=== PATIENT | female | born 2000 | race Caucasian/White ===

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

== ENCOUNTER → 2019-03-09 | Outpatient (CLI) | payer BC ==
--- NOTE | 2019-03-09 15:39 | RAD ---
EXAM DESCRIPTION: Lumbar Puncture: RF CLINICAL HISTORY: HEADACHE. Elevated CSF pressure. Possible brain neoplasm. Previous Chiari I malformation surgery. COMPARISON: None. TECHNIQUE: Informed written consent was obtained from the patient. Timeout was performed with the patient for identification purposes. Patient was positioned prone on the fluoroscopy table. Residential [place] image to visualize the prone lumbar spine prior to needle insertion. Routine sterile prep and drape was performed. Iodine swabs were utilized. 1% lidocaine mixed without bicarbonate was used for local/skin anesthetic. Using fluoroscopy for guidance, a 22 gauge spinal needle was advanced into the L2-3 subarachnoid space of the lumbar spine. Opening pressure was 10.5 mmHg. Closing pressure was 5.8 mmHg. Approximately 3 cc of clear fluid was removed and sent for routine laboratory. Extremely slow drainage. No immediate complication was evident. The patient tolerated the procedure well. Fluoroscopy time: 2.1 minutes.. Single posterior image with needle inserted was recorded. Dose: 73.36 mGy Patient observation for one hour with no complications. Discharged home with family member and home instructions. IMPRESSION: Successful, fluoroscopic-guided, lumbar puncture at L2-L3 level. Pending laboratory results CSF. Electronically signed by: Yong Arana MD 03/09/2019 3:38 PM EMERGENCY DEPARTMENT AIDE
== END | disposition home or self-care (01) ==
LOC: RAD 10:00
PROVIDERS: ATTEND Nurse Practitioner Family
DX: R51 Headache (principal)

== ENCOUNTER 2019-03-10 20:07 | Emergency (ER) | payer BC ==
--- NOTE | 2019-03-10 20:47 | ED.PDOC ---
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 Associated nausea and back pain around the site of the LP. No relief with OTC medications. Denies f/c, change in vision, neck pain, neck stiffness, CP, SOB, abd pain, v/d, urinary sx. Allergies/Adverse Reactions: Allergies NO KNOWN ALLERGY Allergy (Unverified 07/31/18 08:33) Home Medications: Ambulatory Orders Advair 100/50 Diskus 0 mg INH ACHS 06/05/14 Albuterol Sulfate [Ventolin Hfa] 07/31/18 Tramadol HCl 50 mg PO Q8HR PRN #20 tab 07/31/18 Ywghbbnkzlbzc-Takb-Umzyrfkgnz [Fioricet] 1 ea PO Q8H PRN #12 tab 03/10/19 Review of Systems - Review of Systems Constitutional: Denies: chills, fever EENTM: Denies: blurred vision, double vision Respiratory: Denies: cough, short of breath Cardiology: Denies: chest pain, palpitations Gastrointestinal/Abdominal: States: nausea. Denies: abdominal pain, vomiting Genitourinary: Denies: dysuria, frequency, hematuria Musculoskeletal: States: back pain. Denies: muscle stiffness, neck pain Skin: Denies: change in color, rash Neurological: States: headache. Denies: numbness, weakness Hematologic/Lymphatic: Denies: easy bleeding, easy bruising Past Medical History (General) - Patient Medical History Hx Seizures: No Hx Stroke: No Hx Dementia: No Hx Asthma: Yes Hx of COPD: No Hx Cardiac Disorders: No Hx Congestive Heart Failure: No Hx Pacemaker: No Hx Hypertension: No Hx Thyroid Disease: No Hx Diabetes: No Hx Gastroesophageal Reflux: No Hx Renal Disease: No Hx Cancer: No Hx of HIV: No Hx Hepatitis C: No Hx MRSA: No - Vaccination History Hx Tetanus, Diphtheria Vaccination: Yes Hx Influenza Vaccination: Yes Hx Pneumococcal Vaccination: No - Social History Hx Tobacco Use: No Hx Alcohol Use: No Hx Substance Use: No Hx Substance Use Treatment: No Hx Depression: No - Female History Patient : No Family Medical History - Family History Mother Family History: No Known Living Status: Still Living Physical Exam - Physical Exam General Appearance: Alert, No apparent distress, Well Developed, Well Nourished, Other - laying in bed, appears to be uncomfortable Eyes, Ears, Nose, Throat Exam: PERRL/EOMI, normal ENT inspection Neck: non-tender, full range of motion, supple, normal inspection Cardiovascular/Chest: normal peripheral pulses, regular rate, rhythm, no edema, no gallop, no JVD, no murmur Respiratory: chest non-tender, lungs clear, normal breath sounds, no respiratory distress, no accessory muscle use Gastrointestinal/Abdominal: normal bowel sounds, non tender, soft, no organomegaly, no pulsatile mass Back Exam: normal inspection, no CVA tenderness, other - Mild TTP around LP site. No signs of infection, no bleeding or discharge. 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 Headache resolved, appears comfortable, neuro intact. I explained that emergent conditions may arise and to return to the ER for new, worsening, or any persistent conditions including but not limited to intractable vomiting, worsening headache, weakness, numbness, fever. I've explained the importance of f/u for recheck. All questions and concerns addressed at this time. Pt understands and agrees with plan. Pt well appearing, NAD, is stable for discharge. Yahaira Simon MD Emergency Medicine Physician Billing Number [id number] - Results/Orders Results/Orders: Laboratory Results - last 24 hr 03/10/19 03/10/19 03/10/19 20:55 20:55 20:55 WBC 8.1 RBC 4.46 Hgb 13.6 Hct 40.5 MCV 90.8 MCH 30.5 MCHC 33.6 RDW 12.5 Plt Count 270 MPV 7.6 Absolute Neuts (auto) 4.90 Absolute Lymphs (auto) 2.40 Absolute Monos (auto) 0.50 Absolute Eos (auto) 0.30 Absolute Basos (auto) 0.10 Neutrophils % 59.9 Lymphocytes % 29.0 Monocytes % 6.0 Eosinophils % 4.3 Basophils % 0.8 PT 10.4 INR 1.04 PTT (SP) 26.3 Sodium 140 Potassium 3.7 Chloride 108 Carbon Dioxide 20 L Anion Gap 15.7 BUN 8 Creatinine 0.80 BUN/Creatinine Ratio 10.0 Random Glucose 97 Serum Osmolality 277.6 Calcium 9.3 Total Bilirubin 0.5 AST 16 ALT 18 Alkaline Phosphatase 53 L Serum Total Protein 7.4 Albumin 4.5 Globulin 2.9 Albumin/Globulin Ratio 1.6 Urine Color Urine Appearance Urine pH Ur Specific [place] Urine Protein Urine Glucose (UA) Urine Ketones Urine Blood Urine Nitrite Urine Bilirubin Urine Urobilinogen Ur Leukocyte Esterase Urine RBC Urine WBC Ur Epithelial Cells Urine Bacteria Urine HCG, Qual 03/10/19 03/10/19 20:55 20:55 WBC RBC Hgb Hct MCV MCH MCHC RDW Plt Count MPV Absolute Neuts (auto) Absolute Lymphs (auto) Absolute Monos (auto) Absolute Eos (auto) Absolute Basos (auto) Neutrophils % Lymphocytes % Monocytes % Eosinophils % Basophils % PT INR PTT (SP) Sodium Potassium Chloride Carbon Dioxide Anion Gap BUN Creatinine BUN/Creatinine Ratio Random Glucose Serum Osmolality Calcium Total Bilirubin AST ALT Alkaline Phosphatase Serum Total Protein Albumin Globulin Albumin/Globulin Ratio Urine Color Yellow Urine Appearance Clear Urine pH 7.0 Ur Specific [place] 1.020 Urine Protein Negative Urine Glucose (UA) Negative Urine Ketones 40 H Urine Blood Negative Urine Nitrite Negative Urine Bilirubin Negative Urine Urobilinogen 1.0 Ur Leukocyte Esterase Negative Urine RBC 0 Urine WBC 0 Ur Epithelial Cells 1-3 Urine Bacteria 0 Urine HCG, Qual Negative Vital Signs - 24 hr 03/10/19 03/10/19 03/10/19 20:40 21:07 21:57 Temperature 97.6 F Pulse Rate [ 18 L 79 79 left] Respiratory 18 16 16 Rate Blood Pressure 135/85 114/69 114/69 [left] O2 Sat by Pulse 93 L 98 98 Oximetry Departure - Departure Clinical Impression: Post lumbar puncture headache Time of Disposition: 21:52 Disposition: Discharge to Home or Self Care Health Concerns: Condition: stable Departure Forms: ED Discharge - Pt. Copy, Patient Portal Self Enrollment Instructions: DI for Headache Referrals: Abdi Cervantes MD [Primary Care Provider] - 1-2 Days Prescriptions: Iqybyswbqucur-Iwsh-Qhujroykzj [Fioricet] 1 ea PO Q8H PRN #12 tab PRN Reason: Headache Or Mild Pain Home Medications: Ambulatory Orders Advair 100/50 Diskus 0 mg INH ACHS 06/05/14 Albuterol Sulfate [Ventolin Hfa] 07/31/18 Tramadol HCl 50 mg PO Q8HR PRN #20 tab 07/31/18 Akeibegikcwwk-Hvhw-Mmdydqzhjv [Fioricet] 1 ea PO Q8H PRN #12 tab 03/10/19 Additional Instructions: Follow up: [facility] As needed, if symptoms worsen
[2019-03-10] MEDS: METOCLOPRAMIDE HCL INJ 10 MG/2 ML VIAL IV ONE (20:51)
[2019-03-10] MEDS: SODIUM CHLORIDE 0.9% 1000ML 1,000 ML IVS ONE (20:51)
[2019-03-10] MEDS: KETOROLAC TROMETHAMINE INJ 30 MG/ML VIAL IV ONE (20:53)
[2019-03-10] MEDS: diphenhydrAMINE HCL 50 MG/ML VIAL IV ONE (20:53)
[2019-03-10 20:56] VITALS: TEMP 97.6
[2019-03-10 21:10] VITALS: BP 114/69; O2SAT 98
== END 2019-03-10 21:57 | disposition home or self-care (01) ==
LOC: ER 20:07
DX: G97.1 Other reaction to spinal and lumbar puncture (principal); R11.0 Nausea; M54.5 Low back pain; J45.909 Unspecified asthma, uncomplicated; Y84.4 Aspiration of fluid as the cause of abnormal reaction of the patient, or of later complication, without mention of misadventure at the time of the procedure
CPT/HCPCS: 80053; 81001; 81025; 85025; 85610; 85730; J1200; J1885; J2765; J7030

== ENCOUNTER 2019-03-11 19:28 | Observation (INO) | payer BC ==
[2019-03-11] MEDS ORDERED: HYDROmorphone HCL INJ 2 MG/ML VIAL IV ONE (20:24)
[2019-03-11] MEDS ORDERED: ONDANSETRON INJ 4 MG/2 ML VIAL IV ONE (20:25)
--- NOTE | 2019-03-11 21:14 | CT ---
EXAM: CTA Head CLINICAL INDICATION: Headache COMPARISON: MRI brain from 04/16/2018 TECHNIQUE: CTA of the head was performed using contiguous axial 2.5 mm postcontrast sections through the brain including IV contrast with 3-D reconstructions. This exam was performed according to our departmental dose-optimization program, which includes automated exposure control, adjustment of the mA and/or kV according to patient size and/or use of iterative reconstruction technique. FINDINGS: There is no midline shift, mass effect, extra-axial fluid collection, or acute intracranial hemorrhage. The ventricles and cortical sulci are normal for the patient's age. CTA images reveal an unremarkable appearance of the intracranial arterial circulation with no aneurysm, arteriovenous malformation, high-grade stenosis, or significant vascular anomaly. IMPRESSION: Negative CTA of the head. Electronically signed by: Kenyon Escobar MD 03/11/2019 9:[address] [facility]
--- NOTE | 2019-03-11 22:52 | HP ---
SUPERVISING PHYSICIAN: Cristhian Sifuentes MD CHIEF COMPLAINT: Headache. 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 She is going to a new neurosurgeon in [place] who ordered 10 mL of CSF to be drained via lumbar puncture. On Saturday, she did have an LP and only 3 mL were drained. She then went back to school in [place] and was fairly active. She actually came to the hospital on Saturday for a headache. She was sent home and came back on the date of admission with another headache. She was given some fluids as well as some Dilaudid. Her vital signs showed temperature 98.2, heart rate 86, blood pressure 123/71, respiratory rate 16, O2 saturation 99% on room air. Lab was done at the previous ER visit and was basically unremarkable. Her CSF fluid results show appearance was clear, color was colorless, WBCs 3, RBCs 5, neutrophils 99, lymphocytes 1, glucose 57, protein 18.7. Her other CSF labs are unavailable. She had a head CTA done in the Emergency Room and showed a negative CTA of the head. I was called for hospital admission for pain control. PAST MEDICAL HISTORY: 1. Pineal tumor. 2. History of Chiari malformation. 3. Asthma. PAST SURGICAL HISTORY: 1. Tonsillectomy. 2. Chiari surgery in April of 2018. OUTPATIENT MEDICATIONS: 1. Albuterol. 2. Advair. ALLERGIES: NO KNOWN DRUG ALLERGIES. SOCIAL HISTORY: She lives in [place] although she goes to college in [place]. She denies any smoking, ETOH or illicit drug use. 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 REVIEW OF SYSTEMS: GENERAL: Negative for fever, fatigue or weight changes. HEENT: Negative for sinus symptoms, ear pain, vision changes or sore throat. RESPIRATORY: Negative for wheezing, coughing or shortness of breath. CARDIAC: Negative for chest pain, palpitations or tachycardia. GASTROINTESTINAL: Positive for nausea and vomiting. Negative for diarrhea, constipation. GENITOURINARY: Negative for hematuria, dysuria or polyuria. SKIN: Negative for lesions or rashes. NEUROLOGIC: Positive for headaches. Negative for seizures or dizziness although she did have a seizure many years ago which lead to her current history. PHYSICAL EXAMINATION: VITAL SIGNS: Temperature 98. Heart rate 85. Blood pressure 100/63. Respiratory rate 20. O2 saturation 95% on room air. GENERAL: This is a 19-year-old female patient lying in bed. She is in obvious pain. HEENT: Normocephalic, atraumatic. Pupils are equal and reactive. Oropharynx is clear. NECK: Supple without mass. RESPIRATORY: Essentially clear to auscultation bilaterally. CHEST: There is equal rise and fall of the chest with inspiration and expiration. CARDIOVASCULAR: Regular rate and rhythm. GASTROINTESTINAL: Abdomen is soft, nondistended, nontender. Bowel sounds are positive. BACK: She has no CVA tenderness. Normal to inspection. There is a small amount of vertebral tenderness at the lumbar puncture site. There is no redness or edema. EXTREMITIES: No cyanosis, clubbing or edema. NEUROLOGIC: Awake, alert and oriented times three. Cranial nerves II-XII are grossly intact. There are no other neurologic deficits noted. LABORATORY: Labs and films are as per history of present illness. IMPRESSION: 1. Intractable headache due to post lumbar puncture spinal headache. 2. Pineal tumor. 3. History of Chiari malformation with Chiari surgery in April of 2018. 4. Asthma. PLAN: We will place the patient in observation. I have ordered IV fluids as well as Dilaudid for pain control. She will have Zofran as an antiemetic. Gil Thompson CRNA, will be consulted for possible blood patch. I will need to call her neurosurgeon for recommendations and to advise him of the patient's status. I have also ordered some breathing treatments. She will be NPO until the procedure. We will continue to monitor the patient closely and follow as needed. #[id number] [facility]
[2019-03-11] MEDS ORDERED: ACETAMINOPHEN 325 MG TAB PO PRN (22:53)
[2019-03-11] MEDS ORDERED: SODIUM CHLORIDE 0.9% (FLUSH) 10 ML SYG IV PRN (22:53)
[2019-03-11] MEDS ORDERED: IV SET AND CAP CHANGE INJ INJ SCH (23:00)
--- NOTE | 2019-03-11 23:00 | ED.PDOC ---
History of Present Illness - General Chief Complaint: Headache Stated Complaint: sanchez, nausea, dizzy Time Seen by Provider: 03/11/19 20:22 Source: patient, RN notes reviewed, Vital Signs reviewed, family Exam Limitations: no limitations - History of Present Illness Initial Comments: patient presents with complaints of headache. She had a lumbar puncture 2 days ago. Seen here yesterday and given The headache is 10 out of 10. Throbbing. No photophobia. Quality: severe, constant, pressure, throbbing Head Injury Location: global Recent Head Trauma: no recent headache/trauma Improving Factors: nothing Worsening Factors: other - sitting up Associated Symptoms: nausea/vomiting Allergies/Adverse Reactions: Allergies NO KNOWN ALLERGY Allergy (Unverified 07/31/18 08:33) Home Medications: Ambulatory Orders Advair 100/50 Diskus 0 mg INH ACHS 06/05/14 Albuterol Sulfate [Ventolin Hfa] 07/31/18 Tramadol HCl 50 mg PO Q8HR PRN #20 tab 07/31/18 Eebtfpxcldadh-Xnyy-Msmbkyctxp [Fioricet] 1 ea PO Q8H PRN #12 tab 03/10/19 Review of Systems - Review of Systems Constitutional: States: no symptoms reported EENTM: States: no symptoms reported Respiratory: States: no symptoms reported Cardiology: States: no symptoms reported Gastrointestinal/Abdominal: States: nausea, vomiting Genitourinary: States: no symptoms reported Musculoskeletal: States: no symptoms reported Skin: States: no symptoms reported Neurological: States: headache Endocrine: States: no symptoms reported Hematologic/Lymphatic: States: no symptoms reported All other Systems: Reviewed and Negative Past Medical History (General) - Patient Medical History Hx Seizures: No Hx Stroke: No Hx Dementia: No Hx Asthma: Yes Hx of COPD: No Hx Cardiac Disorders: No Hx Congestive Heart Failure: No Hx Pacemaker: No Hx Hypertension: No Hx Thyroid Disease: No Hx Diabetes: No Hx Gastroesophageal Reflux: No Hx Renal Disease: No Hx Cancer: No Hx of HIV: No Hx Hepatitis C: No Hx MRSA: No Surgical History: tonsillectomy, other - Vaccination History Hx Tetanus, Diphtheria Vaccination: Yes Hx Influenza Vaccination: Yes Hx Pneumococcal Vaccination: No - Social History Hx Tobacco Use: No Hx Alcohol Use: No Hx Substance Use: No Hx Substance Use Treatment: No Hx Depression: No - Female History Patient : No Family Medical History - Family History Mother Family History: No Known Living Status: Still Living Physical Exam - Physical Exam General Appearance: Alert, Anxious, Obvious distress, Well Developed, Well Groomed, Well Hydrated, Well Nourished Eyes, Ears, Nose, Throat Exam: PERRL/EOMI, normal ENT inspection, pharynx normal Neck: non-tender, full range of motion, supple, normal inspection, trachea midline Cardiovascular/Chest: normal peripheral pulses, regular rate, rhythm, no edema, no gallop, no murmur Respiratory: chest non-tender, lungs clear, normal breath sounds, no respiratory distress, no accessory muscle use Gastrointestinal/Abdominal: normal bowel sounds, non tender, soft, no organomegaly, no pulsatile mass Back Exam: normal inspection, no CVA tenderness, vertebral tenderness - midline at the side of her lumbar puncture. No redness, crepitus or step-offs Extremity: normal range of motion, non-tender, normal inspection, no pedal edema, no calf tenderness Mental Status: alert, oriented x 3 top carrier Exam: normal hearing, normal speech, PERRL Coordination/Gait: normal gait Motor/Sensory: no motor deficit, no sensory deficit, no pronator drift, negative Babinski's sign Skin Exam: warm/dry, normal color Lymphatic: no adenopathy Progress - Progress Progress: pharyngeal diagnoses: Opiate headache, meningitis, cerebral hypotension, migraine headache among others 03/11/19 23:05 patient's pain is improved. It has returned twice. Pain medication. Anesthesia will perform a blood patch in the morning. Plan on admission. Gabriele Rizo M.D. - Results/Orders Results/Orders: EXAM: CTA Head CLINICAL INDICATION: Headache COMPARISON: MRI brain from 04/16/2018 TECHNIQUE: CTA of the head was performed using contiguous axial 2.5 mm postcontrast sections through the brain including IV contrast with 3-D reconstructions. This exam was performed according to our departmental dose- optimization program, which includes automated exposure control, adjustment of the mA and/or kV according to patient size and/or use of iterative reconstruction technique. FINDINGS: There is no midline shift, mass effect, extra-axial fluid collection, or acute intracranial hemorrhage. The ventricles and cortical sulci are normal for the patient's age. CTA images reveal an unremarkable appearance of the intracranial arterial circulation with no aneurysm, arteriovenous malformation, high-grade stenosis, or significant vascular anomaly. IMPRESSION: Negative CTA of the head. Electronically signed by: Kenyon Escobar MD 03/11/2019 9:12 PM Departure - Departure Clinical Impression: Post lumbar puncture headache Headache Qualifiers: Headache type: unspecified Headache chronicity pattern: acute headache Intractability: intractable Qualified Code(s): R51 - Headache Time of Disposition: 21:30 Disposition: Admit Patient Condition: Good Home Medications: Ambulatory Orders Advair 100/50 Diskus 0 mg INH ACHS 06/05/14 Albuterol Sulfate [Ventolin Hfa] 07/31/18 Tramadol HCl 50 mg PO Q8HR PRN #20 tab 07/31/18 Znqyxezjdldxr-Dngg-Mewyzluxqp [Fioricet] 1 ea PO Q8H PRN #12 tab 03/10/19 Decision To Admit - Decistion To Admit Decision to Admit Reason: Admit from ER Decision to Admit Date: 03/11/19 Decision to Admit Time: 21:30
[2019-03-11] MEDS ORDERED: ALBUTEROL SULFATE 2.5 MG/3 ML VIAL NEB PRN (23:01)
[2019-03-11] MEDS: DEX 5% W/NACL 0.45% 1000ML 1,000 ML IVS PRN (23:38)
[2019-03-11] MEDS: ONDANSETRON INJ 4 MG/2 ML VIAL IV PRN (23:39)
[2019-03-11] MEDS: HYDROmorphone HCL INJ 2 MG/ML VIAL IV PRN (23:43)
[2019-03-12] MEDS: HYDROmorphone HCL INJ 2 MG/ML VIAL IV PRN ×6 (03:12→17:36)
[2019-03-12] MEDS: DEX 5% W/NACL 0.45% 1000ML 1,000 ML IVS PRN ×3 (06:47→22:56)
[2019-03-12] MEDS: ONDANSETRON INJ 4 MG/2 ML VIAL IV PRN ×3 (07:13→15:24)
[2019-03-12] MEDS: FLUTICASONE/SALMETEROL 100/50 1 PUFF INH INH SCH ×2 (08:28→20:27)
[2019-03-12] MEDS: SODIUM CHLORIDE 0.9% (FLUSH) 10 ML SYG IV SCH ×2 (10:11→20:14)
--- NOTE | 2019-03-12 13:15 | PN ---
SUPERVISING PHYSICIAN: Cristhian Sifuentes MD DATE: 03/12/19 SUBJECTIVE: The patient is lying flat in bed. She still has a headache off and on, but the Dilaudid is helping. She does not seem to make it to the 3 hour interval of her Dilaudid medication, so I will change that to every 2 hours. We discussed me calling her neurosurgeon in [place], Dr. Melvin, and I will get in touch with him and get a recommended plan of care. Otherwise, Gil Thompson CRNA, has spoken with the patient and will do a blood patch at some point today after talking to Dr. Melvin. She denies any chest pain or shortness of breath. She occasionally gets nauseated, but it is very mild. OBJECTIVE: VITAL SIGNS: Temperature 98.3. Heart rate 74. Blood pressure 111/74. Respiratory rate 16. O2 saturation 98% on room air. RESPIRATORY: Essentially clear to auscultation bilaterally. CARDIAC: Regular rate and rhythm. NEUROLOGIC: Awake, alert and oriented times three. LABORATORY: There are no labs or films or report at this time. ASSESSMENT: 1. Intractable headache due to post lumbar puncture spinal headache. 2. Pineal tumor. 3. History of Chiari malformation with Chiari surgery in April of 2018. 4. Asthma. PLAN: We will continue present supportive care. I am awaiting a call from her neurosurgeon, Dr. Melvin, at [facility] with recommendations for plan of care. At this point, Gil Thompson CRNA, will do a blood patch if okay with Dr. Melvin. At this point, no need for lab or any other testing unless recommended by Dr. Melvin. I have changed her Dilaudid to every 2 hours. We will continue to monitor the patient closely and follow as needed. #[id number] [facility]
[2019-03-12] MEDS ORDERED: ACETAMINOPHEN-CAFF-BUTALBITAL 1 EA TAB PO ONE (13:18)
[2019-03-12] MEDS ORDERED: PROMETHAZINE HCL INJ 25 MG in SODIUM CHLORIDE 0.9% 50ML 50 ML IVPB PRN (19:48)
[2019-03-12] MEDS ORDERED: PROMETHAZINE HCL INJ 25 MG/ML VIAL ONE (20:04)
[2019-03-12] MEDS ORDERED: SODIUM CHLORIDE 0.9% 50ML 50 ML ONE (20:04)
[2019-03-12] MEDS: ACETAMINOPHEN-CAFF-BUTALBITAL 1 EA TAB PO PRN (20:20)
[2019-03-13] MEDS: ACETAMINOPHEN-CAFF-BUTALBITAL 1 EA TAB PO PRN (05:51)
[2019-03-13] MEDS: DEX 5% W/NACL 0.45% 1000ML 1,000 ML IVS PRN (05:53)
[2019-03-13 06:37] VITALS: O2SAT 98
[2019-03-13 08:22] VITALS: BP 100/65; TEMP 98.5
[2019-03-13] MEDS: FLUTICASONE/SALMETEROL 100/50 1 PUFF INH INH SCH (08:35)
[2019-03-13] MEDS: SODIUM CHLORIDE 0.9% (FLUSH) 10 ML SYG IV SCH (09:15)
--- NOTE | 2019-03-13 11:06 | DS ---
SUPERVISING PHYSICIAN: Cristhian Sifuentes MD DISCHARGE DIAGNOSIS: 1. Intractable headache due to post lumbar puncture spinal headache. 2. Pineal tumor. 3. History of Chiari malformation with Chiari surgery in April of 2018. 4. Asthma. 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 She is going to a new neurosurgeon in [place] who ordered 10 mL of CSF to be drained via lumbar puncture. On Saturday, she did have an LP and only 3 mL were drained. She then went back to school in [place] and was fairly active. She actually came to the hospital on Saturday for a headache. She was sent home and came back on the date of admission with another headache. She was given some fluids as well as some Dilaudid. Her vital signs showed temperature 98.2, heart rate 86, blood pressure 123/71, respiratory rate 16, O2 saturation 99% on room air. Lab was done at the previous ER visit and was basically unremarkable. Her CSF fluid results show appearance was clear, color was colorless, WBCs 3, RBCs 5, neutrophils 99, lymphocytes 1, glucose 57, protein 18.7. Her other CSF labs are unavailable. She had a head CTA done in the Emergency Room and showed a negative CTA of the head. I was called for hospital admission for pain control. HOSPITAL COURSE: The patient was placed in observation and she got some IV fluids as well as Dilaudid for pain control. She also had Zofran and Phenergan as antiemetics. Gil Thompson, MALG[facility]ATA, was consulted and he placed a blood patch yesterday. I did call her neurosurgeon, Dr. Melvin, at [facility] to update him and left a message at his office. I did not receive a return call. At Gil Thompson's recommendation, we also put her on Fioricet for pain. She was titrated off her Dilaudid and given Fioricet as well as antiemetics. She was also placed on bedrest and laid flat for over 24 hours. She has had no problems since her blood patch. She will be discharged home in stable condition today. LABORATORY: There were no labs or films to report other than what was in the history of present illness. DISCHARGE PLAN: The patient will be discharged home in stable condition. She has an appointment with her neurosurgeon at [facility] on Saturday and she is to keep that appointment. In addition to her routine medications, she also has Zofran and Fioricet prescription that I have called in. She is to rest as much as possible and followup with Roshan Tam or the hospital for any problems or complications. She is also to followup with Roshan Tam after her appointment in [place]. DISCHARGE MEDICATIONS: 1. Advair. 2. Albuterol. 3. Fioricet. 4. Zofran. #[id number] [facility]TDD
== END 2019-03-13 10:45 | disposition home or self-care (01) ==
LOC: ER 19:28 → MS 22:50
PROVIDERS: ADMIT Nurse Practitioner Acute Care; ATTEND Nurse Practitioner Acute Care
DX: G97.1 Other reaction to spinal and lumbar puncture (principal); Y84.4 Aspiration of fluid as the cause of abnormal reaction of the patient, or of later complication, without mention of misadventure at the time of the procedure; D49.7 Neoplasm of unspecified behavior of endocrine glands and other parts of nervous system; J45.909 Unspecified asthma, uncomplicated; Z98.890 Other specified postprocedural states; Z79.51 Long term (current) use of inhaled steroids; Z79.899 Other long term (current) drug therapy
CPT/HCPCS: 62273; 96361 ×3; 96374; 96375 ×2; 96376 ×2; J1170 ×8; J2405 ×5; J2550; A4216; J7799 ×5; 70496; 94760 ×2; 94664; 94640 ×2; 94762; 99285